=== PATIENT | male | born 1935 | race Caucasian/White ===

== ENCOUNTER 2017-07-12 19:45 | Emergency (ER) | payer BC, MEDICARE, OTHER ==
[~2017-07-12] VITALS: Ht 180.3 cm; Wt 83.2 kg
[~2017-07-12 19:45] MED LIST: ATOR20TA PO; PERC10TA27 PO; TAB-TAB PO
[2017-07-12 19:49] VITALS: BP 160/75; PULSE 81; RESP 18; TEMP 97.6; O2SAT 94
[2017-07-12] MEDS ORDERED: LIPI20TA PO (20:14)
[2017-07-12] MEDS ORDERED: TAMS5CAP PO (20:14)
[2017-07-12] MEDS ORDERED: CIPR-9 PO (20:14)
--- NOTE | 2017-07-12 20:42 | PD ---
HPI Chief Complaint: Complaint Time Seen by Provider: 20:07 Travel History International Travel<30 days: No Contact w/Intl Traveler<30days: No Traveled to known affect area: No History of Present Illness HPI 82-year-old male complains of urinary retention. Patient status post cystoscopy and right retrograde lithotripsy and stent placement this morning for nephrolithiasis. Urologist Dr. Riley. Patient has been unable to urinate since the procedure. Patient complains of lower abdominal discomfort. Patient denies any chest pain or shortness of breath. Patient denies any back pain. Patient denies any fever chills. PFSH Past Medical History Arthritis: Yes Blood Disorders: No Cancer: No Cardiovascular Problems: Yes (AAA REPAIR) High Cholesterol: Yes Diminished Hearing: No Endocrine: No Gastrointestinal Disorders: Yes Genitourinary: Yes Immune Disorder: No Implanted Vascular Access Dvce: Yes Kidney Stones: Yes Medical other: Yes (ENLARGED PROSTATE) Musculoskeletal: Yes Neurologic: No Psychiatric: No Reproductive: No Respiratory: No Tetanus Vaccination: > 5 Years Influenza Vaccination: Yes Past Surgical History Abdominal Surgery: Yes (AORTIC STENT, APPY) Appendectomy: Yes Body Medical Devices: AORTIC STENT Genitourinary Surgery: Yes (URETHERAL ATTEMPT KIDNEY STONE) Oral Surgery: Yes (T & A) Other Surgery: Yes (LITHOTRIPSY) Social History Alcohol Use: Yes (RARE) Tobacco Use: Yes (PACK A DAY) Substance Use: No Allergies-Medications (Allergen,Severity, Reaction): Coded Allergies: No Known Allergies (Verified Adverse Reaction, Unknown, 07/12/17) Reported Meds & Prescriptions Reported Meds & Active Scripts Active Reported Cipro (Ciprofloxacin HCl) 500 Mg Tab 500 Mg PO BID Flomax (Tamsulosin HCl) 0.4 Mg Cap 0.4 Mg PO HS Lipitor (Atorvastatin Calcium) 20 Mg Tab 20 Mg PO HS Review of Systems General / Constitutional: No: Fever Eyes: No: Visual changes HENT: No: Headaches Cardiovascular: No: Chest Pain or Discomfort Respiratory: No: Shortness of Breath Gastrointestinal: Positive: Abdominal Pain Genitourinary: Positive: Decreased Urinary Output, No: Dysuria Musculoskeletal: No: Pain Skin: No Rash Neurologic: No: Weakness Psychiatric: No: Depression Endocrine: No: Polydipsia Hematologic/Lymphatic: No: Easy Bruising Physical Exam Narrative GENERAL: Well-nourished, well-developed patient. SKIN: Focused skin assessment warm/dry. HEAD: Normocephalic. EYES: No scleral icterus. No injection or drainage. NECK: Supple, trachea midline. No JVD or lymphadenopathy. CARDIOVASCULAR: Regular rate and rhythm without murmurs, gallops, or rubs. RESPIRATORY: Breath sounds equal bilaterally. No accessory muscle use. GASTROINTESTINAL: Abdomen soft, non-tender, nondistended. MUSCULOSKELETAL: No cyanosis, or edema. BACK: Nontender without obvious deformity. No CVA tenderness. Neurologic exam normal. exam: No urethral discharge. Data Data Last Documented VS Vital Signs Date Time Temp Pulse Resp B/P (MAP) Pulse Ox O2 Delivery O2 Flow Rate FiO2 07/12/17 20:14 (103) 07/12/17 19:49 97.6 81 18 94 Room Air Orders Orders Urinary Catheter Insert/Apply (07/12/17 20:07) [facility] Medical Decision Making Medical Screen Exam Complete: Yes Emergency Medical Condition: Yes Differential Diagnosis Differential diagnosis including urinary retention, BPH, nephrolithiasis. Narrative Course 82-year-old male with urinary retention. Status post cystoscopy and right retrograde lithotripsy this morning. Choi cath inserted. Patient produced 1000 cc of dark urine. Choi cath left in place. Diagnosis Primary Impression: Urinary retention Patient Instructions: General Instructions Additional Instructions: Follow-up with urologist Med/Other Pt SpecificInfo: No Change to Meds Disposition: 01 DISCHARGE HOME Condition: Stable Javon Worthington MD Jul 12, 2017 20:42
== END 2017-07-12 21:10 | disposition home or self-care (01) ==
LOC: PHED 19:45
DX: N40.1 Benign prostatic hyperplasia with lower urinary tract symptoms (principal); R33.8 Other retention of urine; E78.00 Pure hypercholesterolemia, unspecified; F17.200 Nicotine dependence, unspecified, uncomplicated
CPT/HCPCS: 51702